=== PATIENT | female | born 1950 | race African-American/Black ===

== ENCOUNTER 2021-11-30 18:43 | Inpatient (IN) | payer MEDICARE, OTHER ==
[~2021-11-30] VITALS: Ht 167.6 cm; Wt 104.3 kg
[~2021-11-30 18:43] MED LIST: AMI2; AMLO10TA4; PROT40; VALS1TAB30
[2021-11-30 22:42] LABS: HEMATOCRIT. 47.2 % (36.0-48.0); HEMOGLOBIN. 15.3 g/dL (12.0-16.0); MEAN CORPUSCULAR HEMOGLOBIN 30.1 pg (28.0-32.0); MEAN CORPUSCULAR VOLUME 93.3 fL (81.0-99.0); MEAN PLATELET VOLUME 8.2 fl (7.4-10.4); PLATELET 188 x1000/uL (130-400); RED BLOOD CELL COUNT 5.06 mill/uL (4.2-5.4); RED CELL DISTRIBUTION WIDTH 14.2 % (11.6-14.6)
[2021-11-30 22:52] LABS: INR 1.1; PROTHROMBIN TIME 12.1 sec (9.6-11.0)
[2021-11-30 22:55] LABS: CHLORIDE 108 mEq/L (98-107)
[2021-11-30] MEDS ORDERED: APIXABAN 5 MG TABLET PO STA (23:11)
[2021-11-30] MEDS ORDERED: LEVETIRACETAM 500MG/5ML CUP PO ONE (23:15)
[2021-11-30] MEDS ORDERED: MORPHINE SULFATE 4 MG/ML CPJ (NOT FOR IM USE) IV ONE (23:15)
[2021-11-30 23:21] LABS: PLATELET ESTIMATE NORMAL
[2021-12-01] MEDS ORDERED: ONDANSETRON HCL 4MG/2ML INJ IV PRN (08:00)
[2021-12-01] MEDS: ACETAMINOPHEN 325MG TABLET PO PRN (08:59)
[2021-12-01] MEDS: APIXABAN 5 MG TABLET PO SCH ×2 (08:59→17:46)
[2021-12-01] MEDS ORDERED: CLONIDINE 0.2MG TABLET PO NR (10:09)
[2021-12-01] MEDS: AMLODIPINE 10MG TABLET PO SCH (12:45)
[2021-12-01 14:06] VITALS: BP 110/78
[2021-12-01 16:00] VITALS: BP 153/86
[2021-12-01] MEDS ORDERED: LEVE1000 PO (17:36)
[2021-12-01] MEDS ORDERED: AMLO-287 MT (17:36)
[2021-12-01] MEDS ORDERED: METO-396 PO (17:36)
[2021-12-01] MEDS ORDERED: FURO20TA4 PO (17:36)
[2021-12-01] MEDS ORDERED: APIX5TAB4 PO (17:36)
[2021-12-01] MEDS ORDERED: TIOT4MIS5 IH (17:36)
[2021-12-01] MEDS ORDERED: ALBU90AE INH (17:36)
[2021-12-01] MEDS ORDERED: GABA-532 PO (17:36)
[2021-12-01] MEDS: DOCUSATE SODIUM 100MG CAPSULE PO SCH (17:46)
[2021-12-01] MEDS: METOCLOPRAMIDE HCL 10MG/2ML VIAL IV SCH (17:47)
[2021-12-01 20:00] VITALS: BP 120/75
[2021-12-01] MEDS: FAMOTIDINE 20MG TABLET PO SCH (21:42)
[2021-12-01 23:31] LABS: HEPATITIS B SURFACE ANTIGEN NEGATIVE
[2021-12-02] VITALS (7 sets, daily range): BP systolic 108–125; BP diastolic 56–80
[2021-12-02] MEDS: METOCLOPRAMIDE HCL 10MG/2ML VIAL IV SCH ×3 (00:10→13:50)
[2021-12-02] MEDS: ACETAMINOPHEN 325MG TABLET PO PRN (07:45)
[2021-12-02 08:05] LABS: HEMATOCRIT. 41.9 % (36.0-48.0); HEMOGLOBIN. 13.8 g/dL (12.0-16.0); MEAN CORPUSCULAR HEMOGLOBIN 30.3 pg (28.0-32.0); MEAN CORPUSCULAR VOLUME 91.9 fL (81.0-99.0); MEAN PLATELET VOLUME 8.8 fl (7.4-10.4); PLATELET 179 x1000/uL (130-400); RED BLOOD CELL COUNT 4.56 mill/uL (4.2-5.4)
[2021-12-02] MEDS ORDERED: FAMO20TA8 PO (08:05)
[2021-12-02 08:07] LABS: CHLORIDE 105 mEq/L (98-107)
[2021-12-02] MEDS: AMLODIPINE 10MG TABLET PO SCH (09:00)
[2021-12-02] MEDS: DOCUSATE SODIUM 100MG CAPSULE PO SCH ×2 (10:07→16:57)
[2021-12-02] MEDS: LEVETIRACETAM 500MG TABLET PO SCH ×2 (10:07→21:39)
[2021-12-02] MEDS: APIXABAN 5 MG TABLET PO SCH ×2 (10:07→16:56)
[2021-12-02] MEDS: TRAMADOL 50MG TABLET PO PRN ×2 (10:35→17:00)
[2021-12-02 12:52] LABS: CLARITY URINE TURBID (CLEAR); COLOR URINE YELLOW (YELLOW); KETONES URINE TRACE (NEGATIVE); LEUKOCYTE ESTERASE URINE 3+ (NEGATIVE); NITRITE URINE POSITIVE (NEGATIVE); OCCULT BLOOD URINE 2+ (NEGATIVE); PH URINE 5.5 (4.5-8.0); PROTEIN URINE 2+ (NEGATIVE)
[2021-12-02] MEDS ORDERED: LEVO500T90 MT (14:11)
[2021-12-02] MEDS ORDERED: LEVOFLOXACIN 500MG TABLET PO SCH (14:20)
[2021-12-02 18:58] LABS: PLATELET ESTIMATE NORMAL
[2021-12-02] MEDS: FAMOTIDINE 20MG TABLET PO SCH (21:39)
== END 2021-12-02 23:15 | disposition home or self-care (01) | DRG 394 ==
LOC: ER 18:43 → 6EST 12-01 00:32 → EDBEDREQDT 12-01 00:36 → EDBEDREQ 12-01 00:36 → EDBEDREQTM 12-01 00:36 → ENRESERV 12-01 10:19
PROVIDERS: ADMIT Internal Medicine; ATTEND Internal Medicine
DX: K42.9 Umbilical hernia without obstruction or gangrene (principal); E44.1 Mild protein-calorie malnutrition; K56.699 Other intestinal obstruction unspecified as to partial versus complete obstruction; K59.00 Constipation, unspecified; R19.2 Visible peristalsis; B19.20 Unspecified viral hepatitis C without hepatic coma; I48.91 Unspecified atrial fibrillation; K57.90 Diverticulosis of intestine, part unspecified, without perforation or abscess without bleeding; D72.819 Decreased white blood cell count, unspecified; E87.8 Other disorders of electrolyte and fluid balance, not elsewhere classified; I11.0 Hypertensive heart disease with heart failure; I50.9 Heart failure, unspecified; E66.9 Obesity, unspecified; J44.9 Chronic obstructive pulmonary disease, unspecified; Z90.49 Acquired absence of other specified parts of digestive tract; Z86.73 Personal history of transient ischemic attack (TIA), and cerebral infarction without residual deficits; Z79.01 Long term (current) use of anticoagulants; Z68.37 Body mass index [BMI] 37.0-37.9, adult; Z79.899 Other long term (current) drug therapy; Z71.3 Dietary counseling and surveillance
CPT/HCPCS: 36415; 74018; 74176; 76705; 80048; 80053; 81003; 85025; 86705; 86709; 86803; 87077; 87186; 87340; 93005; 99285; J2270; J2405; J2765